=== PATIENT | male | born 1950 | race Caucasian/White ===

== ENCOUNTER 2018-11-15 03:54 | Observation (INO) | payer MEDICARE ==
[~2018-11-15] VITALS: Ht 170.2 cm; Wt 100.0 kg
[~2018-11-15 03:54] MED LIST: (None)20 M1 PO; BENTYL20 MG PO; Catapres0.1 MG PO; HTN MED; OXYACE5T PO; PRAM.5 PO; PROM25 PO; TRAZ50 PO
[2018-11-15 04:10] LABS: Calcium, Ionized (POC) 1.19 mmol/L (1.10-1.46); Chloride (POC) 102 mmol/L (98-108); Creatinine (POC) 0.8 mg/dL (0.8-1.3); Glucose (ISTAT POC) 256 mg/dL (70-99); Hemoglobin (POC) 14.3 g/dL (13.5-17.5); Sodium (POC) 134 mmol/L (135-148); Total CO2 (POC) 21 mmol/L (21-32)
[2018-11-15 04:12] LABS: BASOPHILS ABSOLUTE AUTO 0.01 K/mm3 (0.00-0.23); BASOPHILS PERCENT AUTO 0 % (0-2); EOSINOPHILS PERCENT AUTO 0 % (0-6); Hematocrit 42.8 % (37.0-53.0); IMMATURE GRAN ABSOLUTE AUTO 0.05 K/mm3 (0.00-0.10); IMMATURE GRAN PERCENT AUTO 1 % (0-1); LYMPHOCYTES ABSOLUTE AUTO 0.61 K/mm3 (0.84-5.20); LYMPHOCYTES PERCENT AUTO 9 % (21-46); MONOCYTES ABSOLUTE AUTO 0.21 K/mm3 (0.16-1.47); MONOCYTES PERCENT AUTO 3 % (4-13); Mean Corpuscular HGB 33.6 pg (26.0-34.0); Mean Corpuscular Volume 96 fL (80-100); Mean Platelet Volume 10.3 fL (9.1-12.4); NEUTROPHILS ABSOLUTE AUTO 5.72 K/mm3 (1.96-9.15); NEUTROPHILS PERCENT AUTO 87 % (41-73); Platelet Count 156 K/mm3 (150-400); RDW Coefficient Variation 12.4 % (11.7-14.2); RDW Standard Deviation 43.9 fL (35.1-46.3); Red Blood Cell Count 4.47 M/mm3 (4.30-5.90)
[2018-11-15] MEDS ORDERED: METO100ER PO (04:18)
[2018-11-15] MEDS ORDERED: VALS80 PO (04:18)
[2018-11-15] MEDS ORDERED: AMLO10 PO (04:18)
[2018-11-15 04:33] LABS: Alanine Aminotransfer (ALT/SGP 48 U/L (12-78); Albumin/Globulin Ratio 1.2 (0.8-1.8); Alk Phos 109 U/L (50-136); Anion Gap 11 mmol/L (6-16); Aspartate Aminotrans (AST/SGOT 51 U/L (12-37); Bilirubin, Total 0.6 mg/dL (0.1-1.0); Blood Urea Nitrogen 22 mg/dL (8-24); Bun/Creatinine Ratio 29.9 (12.0-20.0); CO2, Blood 22 mmol/L (21-32); Calcium, Blood 9.1 mg/dL (8.5-10.1); Chloride, Blood 103 mmol/L (98-108); Creatinine, Blood 0.74 mg/dL (0.60-1.20); Globulin, Blood 3.3 g/dL (2.2-4.0); Glomerular Filtration Rate >60 (60-); Glucose, Blood 240 mg/dL (70-99); Potassium, Blood 4.1 mmol/L (3.5-5.5); Sodium, Blood 136 mmol/L (136-145); Total Protein, Blood 7.3 g/dL (6.4-8.2); Troponin I 0.317 ng/mL (0.000-0.040)
[2018-11-15 05:05] LABS: International Normalized Ratio 1.07; Prothrombin Time Results 11.3 Sec (9.7-11.5)
[2018-11-15] MEDS ORDERED: HYDROCODON-ACE118 ML (05:45)
--- NOTE | 2018-11-15 06:42 | NUR ---
0645 PATIENT ARRIVES TO ROOM VIA GURNEY, AMBULATE FROM GURNEY TO BED WITH NO ASSISST. VS TAKEN ROOM AND UNIT TEACHING DONE, ADMIT FINISHED BED IN LOW POSITION, CALL LIGHT IN REACH WILL PASS ON TO DAY SHIFT.
[2018-11-15 12:57] LABS: Troponin I 1.72 ng/mL (0.000-0.040)
--- NOTE | 2018-11-15 13:17 | NUR ---
HEADED TO TUBE SPLICER BUT BUMPED DUE TO MORE URGENT PT, RETURNED, STATED NO CHEST PAIN OR SOB, WILL CONTINUE TO MONITOR
--- NOTE | 2018-11-15 13:20 | NUR ---
Echocardiogram completed.
--- NOTE | 2018-11-15 13:23 | NUR ---
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
--- NOTE | 2018-11-15 16:59 | NUR ---
CONTINUED TO CHECK VS Q15M UNTIL PT LEFT ON [facility] TO RB, AT SIDE, CALLED REPORT TO JAROD AT [phone], GAVE PT STATUS, HISTORY AND CURRENT ORDERS, DISCUSSED TODAYS PROCEDURE AND THE REQUIREMENTS FOR THE DEFLATION OF THE WRIST BAND, COPY OF CHART AND ORDERS SENT WITH PT, A+O, WALKED TO [facility] FROM ROOM, REPORT PROVIDED TO AMBULANCE PERSONEL
== END 2018-11-15 16:50 | disposition short-term general hospital (02) ==
LOC: ER 03:54 → PCU 05:38 → ER 05:38 → PCU 05:38
PROVIDERS: Emergency Medicine; ADMIT Internal Medicine
DX: I21.4 Non-ST elevation (NSTEMI) myocardial infarction (principal); I25.10 Atherosclerotic heart disease of native coronary artery without angina pectoris; I08.0 Rheumatic disorders of both mitral and aortic valves; I10 Essential (primary) hypertension; M54.9 Dorsalgia, unspecified; G89.29 Other chronic pain; E66.9 Obesity, unspecified; E78.5 Hyperlipidemia, unspecified; Z87.891 Personal history of nicotine dependence; Z88.1 Allergy status to other antibiotic agents; Z88.5 Allergy status to narcotic agent; Z79.899 Other long term (current) drug therapy
CPT/HCPCS: 36415; 71045; 80047; 80053; 82550; 82947; 83036; 83880; 84484; 85014; 85025; 85347; 85610; 85730; 93005; 93010; 93306; 93454; 96361; 96374; 96375; 96376; 99152; 99285-25; C1769; C1894; G0378; J1644; J2250; J2405; J3010; J7030; Q9967

== ENCOUNTER → 2020-05-28 | Outpatient (CLI) | payer MEDICARE ==
[~2020-05-28] MED LIST changes: +AMLO10 PO; +HYDROCODON-ACE118 ML; +METO100ER PO; +VALS80 PO
[2020-06-02 12:18] LABS: Stool Occult Bld Immuno 1 Positive (NEGATIVE)
== END | disposition home or self-care (01) ==
LOC: LAB SHORT 16:00
PROVIDERS: Nurse Practitioner Family
DX: R79.9 Abnormal finding of blood chemistry, unspecified (principal)
CPT/HCPCS: 82274

== ENCOUNTER 2020-08-25 11:07 | Day surgery (SDC) | payer MEDICARE ==
[~2020-08-25] VITALS: Ht 170.2 cm; Wt 94.3 kg
[~2020-08-25 11:07] MED LIST changes: +ASPI325EC PO; +ATOR20 PO; +BIOTIN1 MG PO; +COREG12.5 M1 PO; +Diovan320 MG PO; +GLUCOPHAGE1000 M1 PO; +HYDCHL25 PO; +MULTIPLE VITAM1 EACH PO; +Norco 7.5-3251 EACH PO; +PRAMIPEXOLE DIHY1 MG PO; +QUININE SULFAT PO; +VITAMIN D325 MC3
[2020-08-25] MEDS ORDERED: METF500 (11:24)
[2020-08-25] MEDS ORDERED: METO100ER (11:25)
[2020-08-25] MEDS ORDERED: ASPI81CH (11:30)
== END 2020-08-25 13:27 | disposition home or self-care (01) ==
LOC: ORSCSDS 11:07
PROVIDERS: Student in an Organized Health Care Education/Training Program
PROC: 0DBL8ZX Excision of Transverse Colon, Via Natural or Artificial Opening Endoscopic, Diagnostic (ICD-10-PCS; principal; 2020-08-25 12:15)
PROC: 0DBM8ZX Excision of Descending Colon, Via Natural or Artificial Opening Endoscopic, Diagnostic (ICD-10-PCS; principal; 2020-08-25 12:15)
PROC: 0DBH8ZX Excision of Cecum, Via Natural or Artificial Opening Endoscopic, Diagnostic (ICD-10-PCS; principal; 2020-08-25 12:15)
DX: K92.1 Melena (principal); Z86.010 Personal history of colon polyps; D12.0 Benign neoplasm of cecum; D12.2 Benign neoplasm of ascending colon; D12.3 Benign neoplasm of transverse colon; D12.4 Benign neoplasm of descending colon; K57.30 Diverticulosis of large intestine without perforation or abscess without bleeding; K64.8 Other hemorrhoids; I10 Essential (primary) hypertension; I25.2 Old myocardial infarction; G47.33 Obstructive sleep apnea (adult) (pediatric); Z79.899 Other long term (current) drug therapy; Z79.82 Long term (current) use of aspirin
CPT/HCPCS: 82947; 88305; J2704

== ENCOUNTER → 2024-06-06 | Outpatient (CLI) | payer OTHER ==
[~2024-06-06] MED LIST changes: +ASPI81CH; +METF500; +METO100ER
[2024-06-06 09:36] LABS: BASOPHILS ABSOLUTE AUTO 0.08 K/mm3 (0.00-0.23); BASOPHILS PERCENT AUTO 1 % (0-2); EOSINOPHILS ABSOLUTE AUTO 3.81 K/mm3 (0.00-0.68); EOSINOPHILS PERCENT AUTO 28 % (0-6); Hematocrit 42.5 % (37.0-53.0); Hemoglobin 14.4 g/dL (13.5-17.5); IMMATURE GRAN ABSOLUTE AUTO 0.05 K/mm3 (0.00-0.10); IMMATURE GRAN PERCENT AUTO 0 % (0-1); LYMPHOCYTES ABSOLUTE AUTO 1.83 K/mm3 (0.84-5.20); LYMPHOCYTES PERCENT AUTO 13 % (21-46); MONOCYTES ABSOLUTE AUTO 0.73 K/mm3 (0.16-1.47); MONOCYTES PERCENT AUTO 5 % (4-13); Mean Corpuscular HGB Conc 33.9 g/dL (31.5-36.5); Mean Corpuscular Volume 97 fL (80-100); Mean Platelet Volume 9.9 fL (9.1-12.4); NEUTROPHILS ABSOLUTE AUTO 7.32 K/mm3 (1.96-9.15); NEUTROPHILS PERCENT AUTO 53 % (41-73); Platelet Count 148 K/mm3 (150-400); RDW Standard Deviation 50.7 fL (35.1-46.3); Red Blood Cell Count 4.37 M/mm3 (4.30-5.90); White Blood Cell Count 13.82 K/mm3 (4.00-11.30)
[2024-06-06 09:48] LABS: Albumin, Blood 3.3 g/dL (3.4-5.0); Bilirubin, Total 1.2 mg/dL (0.1-1.0); Bun/Creatinine Ratio 20.4 (12.0-20.0); Calcium, Blood 9.2 mg/dL (8.5-10.1); Creatinine, Blood 0.93 mg/dL (0.60-1.20); Globulin, Blood 3.2 g/dL (2.2-4.0); Total Protein, Blood 6.5 g/dL (6.4-8.2)
== END ==
LOC: LAB 09:32 → LAB SHORT 09:32
PROVIDERS: Physician Assistant
DX: R10.13 Epigastric pain (principal)
CPT/HCPCS: 80053; 83690; 85025

== ENCOUNTER → 2024-06-11 | Outpatient (CLI) | payer OTHER ==
[2024-06-11 16:53] LABS: Adenovirus F 40/41 Not Detected (NOT DETECT); Astrovirus Not Detected (NOT DETECT); Campylobacter Sp Not Detected (NOT DETECT); Cryptosporidium Not Detected (NOT DETECT); Cyclospora Cayetanensis Not Detected (NOT DETECT); E. Coli O157 Not Detected (NOT DETECT); Entamoeba Histolytica Not Detected (NOT DETECT); Enteroaggregative E. coli-EAEC Not Detected (NOT DETECT); Enteropathogenic E. coli-EPEC Not Detected (NOT DETECT); Enterotoxigenic E. coli-ETEC Not Detected (NOT DETECT); Giardia Lamblia Not Detected (NOT DETECT); Norovirus GI/GII Not Detected (NOT DETECT); Plesiomonas Shigelloides Not Detected (NOT DETECT); Rotavirus A Not Detected (NOT DETECT); Salmonella Sp Not Detected (NOT DETECT); Sapovirus Not Detected (NOT DETECT); Shiga Toxin-prod E. coli-STEC Not Detected (NOT DETECT); Shigella/Enteroin E. coli-EIEC Not Detected (NOT DETECT); Vibrio Cholerae Not Detected (NOT DETECT); Vibrio Sp Not Detected (NOT DETECT); Yersinia Enterocolitica Not Detected (NOT DETECT)
== END | disposition home or self-care (01) ==
LOC: LAB 13:14 → LAB SHORT 13:14
PROVIDERS: Family Medicine
DX: R19.7 Diarrhea, unspecified (principal)
CPT/HCPCS: 87507